=== PATIENT | female | born 1950 | race Caucasian/White ===

== ENCOUNTER 2017-02-25 11:26 | Day surgery (SDC) | payer OTHER, MEDICARE ==
[~2017-02-25] VITALS: Ht 160 cm; Wt 90.7 kg
[~2017-02-25 11:26] MED LIST: ALPR0.254 PO; ASPI-973 PO; CALC-140 PO; DULO30CA50 PO; FLUO40CA PO; GABA-502 PO; GLIP10TA10 PO; HYDR25TA4 PO; LIP40 PO; LISI-567 PO; METF1000 PO; METF500T4 PO; NABU500T PO; NPH,100V11 SUBQ; OXYC-465 PO; Sodium Chloride LOK Flush 10 mL Syringe IV PRN; TACR5CAP PO; TRAZ-115 PO; fentaNYL-PF 50 mCg/mL 2 mL Inj IVPUSH PRN
[2017-02-25 11:57] VITALS: BP 124/72; PULSE 76; RESP 16; O2SAT 97
[2017-02-25] MEDS ORDERED: OMEP20TA24 PO (12:00)
[2017-02-25] MEDS ORDERED: TURM500C7 PO (12:00)
[2017-02-25] MEDS ORDERED: ALPR0.254 PO (12:20)
[2017-02-25] MEDS: 0.9% Sodium Chloride 1,000 ML IV SCH ×2 (12:44→13:49)
[2017-02-25 13:57] VITALS: BP 136/69; PULSE 76; RESP 16; O2SAT 96
[2017-02-25 14:07] VITALS: BP 126/80; PULSE 72; RESP 16; O2SAT 97
--- NOTE | 2017-02-25 14:29 | ENDO ---
[address] [address] ENDOSCOPY PROCEDURE PATIENT: CARLOS MANUEL STEWART : 1950 MR#: [id number] ADMIT: 02/25/2017 JOB ID: [id number] DATE: 02/25/2017 PRIMARY PROVIDER: Francisco Berumen M.D. PROCEDURE: Esophagogastroduodenoscopy with biopsies and a colonoscopy with random biopsies. INDICATIONS: A 66-year-old female with symptoms of GERD with intermittent dysphagia to pills along with altered bowel habit and a tendency towards loose stools. Both EGD and colonoscopy are, therefore, pursued. EQUIPMENT: GIF H 180 and a PCF H 180 AL. SEDATION: 1. 10 mg Versed. 2. 200 mcg fentanyl. COMPLICATIONS: None identified. BOWEL PREPARATION: Fair, adequate examination. PROCEDURAL INFORMATION: After the risks and benefits were explained, written and verbal informed consent was obtained. The patient was brought into the endoscopy suite and placed into the left lateral decubitus position. Sedation was achieved using the above-stated medications with the addition of oxygen via nasal cannula. The scope was introduced into the mouth through the bite block, and advanced to the second portion of the duodenum. The scope was slowly withdrawn to carefully examine the mucosa for any defects or lesions. Retroflexed views were accomplished in the stomach. The stomach was decompressed. The scope removed from the patient who tolerated the procedure well. The patient was then turned around. A digital rectal examination accomplished. No significant pathology appreciated apart from some [id number] internal external nonbleeding, nonthrombosed hemorrhoids. The scope was introduced into the rectum and advanced to the cecum as identified by the appendiceal orifice and ileocecal valve. The scope was slowly withdrawn to carefully examine the mucosa for any defects or lesions. Multiple direct views were made through the dentate line for exclusion of pathology. The colon was decompressed. The scope removed from the patient who tolerated the procedure well. FINDINGS: 1. Duodenum: No pathology identified from the bulb through to the second portion. Because of the patient's symptoms of diarrhea, random biopsies were taken for exclusion of sprue. 2. Stomach: Mild gastropathy was seen throughout. Otherwise no significant mucosal pathology. No ulcers, no mass lesions. No outlet obstruction. Retroflexed views of the LES were unremarkable. Random biopsy was taken from the gastric mucosa for exclusion of Helicobacter or other pathology. 3. Esophagus: The squamocolumnar junction correlated with the top of the gastric folds. The GE junction was at about 37 cm from the incisors. However, there was evidence of a few possible islands of Valladares's, very small in the distal esophagus. One of these was targeted for histopathology. I did not see any acute erosive changes. No strictures. No mass lesions. In the mid esophagus, there was a slight corrugated appearance and I took a biopsy to exclude the presence of eosinophilic esophagitis. 4. Colon: We had a peak into the very terminal aspect of the terminal ileum and this appeared normal. I could not navigate the scope secondary to colon tortuosity all the way up into TI. I did not see any macroscopic colitis throughout. Random colon biopsies were taken for exclusion of microscopic disease. No significant polyps or mass lesions otherwise identified. The patient had a lengthy redundant colon and navigation was somewhat challenging to finally arrive at the cecum. ENDOSCOPIC DIAGNOSES: 1. Possible eosinophilic esophagitis. 2. Subtle sliding hiatal hernia (not mentioned above). 3. 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 4. Mild gastropathy. 5. Lengthy redundant bowel. 6. Hemorrhoids. 7. Mild diverticulosis in the left colon (not mentioned above). RECOMMENDATIONS: 1. Await histopathology. 2. Repeat colonoscopy in 10 years' time, sooner as needed. 3. Fiber supplementation. 4. Followup on results in GI clinic with Mis Membreno.
--- NOTE | 2017-02-27 12:04 | PATH ---
SURGICAL PATHOLOGY Attending Physician:Gordon Sweeney CASE STATUS: Signed Out PATIENT NAME: CARLOS MANUEL STEWART PID: [id number] : 1950 DATE COLLECTED:02/25/2017 00:00 SPECIMEN: 1: Duodenum, Biopsy 2: Gastric, Biopsy 3: Esophagus, Biopsy 4: Esophagus, Biopsy 5: Colon, Biopsy CLINICAL HISTORY: 1. DUODENAL BXS 2. GASTRIC BXS 3. DISTAL ESOPHAGUS BXS 4. MID ESOPHAGUS BXS 5. RANDOM COLON BXS FINAL DIAGNOSIS: 1.DUODENAL BIOPSIES: FOCAL CHRONIC DUODENITIS. Negative for celiac disease. Negative for dysplasia and malignancy. 2.GASTRIC BIOPSY: SMALL FRAGMENT OF GASTRIC FUNDIC MUCOSA WITH MILD CHRONIC GASTRITIS. Negative for evidence of Helicobacter. Negative for intestinal metaplasia. Negative for dysplasia and malignancy. 3.DISTAL ESOPHAGUS BIOPSIES: FRAGMENTS OF SQUAMOUS MUCOSA AND GASTRIC CARDIA-TYPE MUCOSA NEGATIVE FOR SPECIALIZED METAPLASIA OF RIVAS' S-TYPE ESOPHAGUS. Negative for dysplasia and malignancy. Negative for squamous intraepithelial eosinophils. 4.MID ESOPHAGUS BIOPSIES: FRAGMENTS OF SQUAMOUS EPITHELIUM, NEGATIVE FOR ATYPIA. Negative for intraepithelial eosinophils. 5.RANDOM COLON BIOPSIES: TWO FRAGMENTS OF NORMAL-APPEARING COLON MUCOSA. Negative for significant architectural distortion. Negative for significant inflammation, dysplasia and malignancy. ICD10 K29.70 GROSS DESCRIPTION: The specimen is received in five formalin filled containers labeled with the patient's name. 1). The specimen is sublabeled "duodenal" and consists of 2 portions of tissue which aggregate to 0.2 x 0.2 x 0.2 CM. The specimen is entirely submitted in cassette 1A. 2). The specimen is sublabeled "gastric" and consists of a 0.1 x 0.1 x 0.1 CM portion of tissue which is entirely submitted in cassette 2A. 3). The specimen is sublabeled "distal esophagus" and consists of an extremely tiny less than 0.1 CM portion of tissue which is entirely submitted in cassette 3A. 4). The specimen is sublabeled "mid esophagus" and consists of an extremely tiny less than 0.1 CM portion of tissue which is entirely submitted in cassette 4A. 5). The specimen is sublabeled "random colon" and consists of 2 portions of tissue which aggregate to 0.3 x 0.3 x 0.2 CM. The specimen is entirely submitted in cassette 5A. 02/26/2017 [facility] MICRO DESCRIPTION: See diagnosis. ICD-9 CODES: CPT CODES: 1: 48189 2: 98815 3: 85254 4: 12876 5: 26043 Electronically Signed Out Zheng Fitzgerald MD [facility] [address], [place] [address] Technical component performed at [facility], [address], [place], [address]
== END 2017-02-25 23:59 | disposition home or self-care (01) ==
LOC: END 11:26
PROVIDERS: ATTEND Internal Medicine Gastroenterology
DX: R19.4 Change in bowel habit (principal); K57.30 Diverticulosis of large intestine without perforation or abscess without bleeding; K64.8 Other hemorrhoids; K29.50 Unspecified chronic gastritis without bleeding; K29.80 Duodenitis without bleeding; K44.9 Diaphragmatic hernia without obstruction or gangrene; K31.9 Disease of stomach and duodenum, unspecified; K21.9 Gastro-esophageal reflux disease without esophagitis; I10 Essential (primary) hypertension; E11.9 Type 2 diabetes mellitus without complications; E78.5 Hyperlipidemia, unspecified; R01.1 Cardiac murmur, unspecified; Z79.4 Long term (current) use of insulin; Z79.84 Long term (current) use of oral hypoglycemic drugs; Z79.82 Long term (current) use of aspirin
CPT/HCPCS: 43239; 45380; 99153; G0500; J7030